=== PATIENT | male | born 1965 | race Caucasian/White ===

== ENCOUNTER 2018-10-24 12:51 | Emergency (ER) | payer BC, MEDICARE ==
[2018-10-24] MEDS ORDERED: Aspirin 81 MG Tab.Chew PO ONE (12:52)
--- NOTE | 2018-10-24 12:55 | EDM.PDOC ---
ED HPI GENERAL MEDICAL PROBLEM - General Chief Complaint: Cardiovascular Problem Stated Complaint: CHEST PAINS Time Seen by Provider: 10/24/18 12:53 Source of Information: Reports: Patient, Old Records History Limitations: Reports: No Limitations - History of Present Illness INITIAL COMMENTS - FREE TEXT/NARRATIVE: 53 yo male here with about 3 hrs of chest pain, 6 out of 10 in severity. No nausea, diaphoresis or SOB. Is a 1 ppd smoker. No personal hx of CAD, but does have a FHx. No diabetes or HTN by hx. Didn't feel well since awakening today. Onset: Today Onset Date: 10/24/18 Onset Time: 10:00 Duration: Hour(s): (3), Constant Location: Reports: Chest Quality: Reports: Pressure Severity: Moderate Improves with: Reports: None Worsens with: Reports: None Context: Reports: Other (See HPI) Associated Symptoms: Reports: Malaise Treatments [employer]: Reports: Other (see below) (none) Chest Pain Score (Numeric/FACES): 6 - Related Data Allergies Allergy/AdvReac Type Severity Reaction Status Date / Time No Known Allergies Allergy Verified 04/02/18 06:00 Home Meds: Home Meds Gabapentin [Neurontin] 2,400 mg PO BEDTIME 06/21/17 [History] Past Medical History Musculoskeletal History: Reports: Back Pain, Chronic, Other (See Below) Other Musculoskeletal History: Lower Back Neurological History: Reports: None - Infectious Disease History Infectious Disease History: Reports: Chicken Pox - Past Surgical History Neurological Surgical History: Reports: Other (See Below) Other Neurological Surgeries/Procedures: neck surgery Musculoskeletal Surgical History: Reports: None Social & Family History - Caffeine Use Caffeine Use: Reports: Coffee ED ROS GENERAL - Review of Systems Review Of Systems: See Below Constitutional: Reports: No Symptoms HEENT: Reports: No Symptoms Respiratory: Reports: No Symptoms Cardiovascular: Reports: Chest Pain Endocrine: Reports: No Symptoms GI/Abdominal: Reports: No Symptoms : Reports: No Symptoms Musculoskeletal: Reports: No Symptoms Skin: Reports: No Symptoms Neurological: Reports: No Symptoms Psychiatric: Reports: No Symptoms ED EXAM, GENERAL - Physical Exam Exam: See Below Exam Limited By: No Limitations General Appearance: Alert, WD/WN, No Apparent Distress Eye Exam: Bilateral Eye: Normal Inspection Ears: Normal External Exam, Normal Canal, Hearing Grossly Normal Ear Exam: Bilateral Ear: Auricle Normal, Canal Normal Nose: Normal Inspection, No Blood Throat/Mouth: Normal Inspection, Normal Lips, Normal Oropharynx, Normal Voice, No Airway Compromise Head: Atraumatic, Normocephalic Neck: Normal Inspection Respiratory/Chest: No Respiratory Distress, Lungs Clear, Normal Breath Sounds, No Accessory Muscle Use, Other (mild anterior chest wall discomfort). No: Chest Non-Tender Cardiovascular: Regular Rate, Rhythm, No Edema GI/Abdominal: Normal Bowel Sounds, Soft, Non-Tender, No Distention Back Exam: Normal Inspection. No: CVA Tenderness (R), CVA Tenderness (L) Extremities: Normal Inspection, Normal Range of Motion, Non-Tender, No Pedal Edema Neurological: Alert, Oriented, CN II-XII Intact, Normal Cognition, No Motor/ Sensory Deficits Psychiatric: Normal Affect, Normal Mood Skin Exam: Warm, Dry, Intact, Normal Color, No Rash EKG INTERPRETATION EKG Date: 10/24/18 Time: 12:45 Rhythm: NSR Rate (Beats/Min): 70 [place]: Normal P-Wave: Present QRS: Normal ST-T: Elevated (anteriorly) QT: Normal Comparison: NA - No Prior EKG Course - Vital Signs Text/Narrative:: EKG FAX'd to [facility] @ [id number], concern re: anterior STEMI vs pericarditis Last Recorded V/S: Last Vital Signs Temp 36.2 C 10/24/18 13:11 Pulse 70 10/24/18 13:11 Resp 12 10/24/18 13:11 BP 122/80 10/24/18 13:11 Pulse Ox 100 10/24/18 13:11 - Orders/Labs/Meds Orders: Active Orders 24 hr Category Date Time Status Cardiac Monitoring [RC] .As Directed Care 10/24/18 12:52 Active EKG Documentation Completion [RC] ASDIRECTED Care 10/24/18 12:52 Active Heparin Sodium/D5W [Heparin 25,000 Units in D5W 500 ML] Med 10/24/18 13:00 Active 25,000 units in 500 ml IV NOW Sodium Chloride 0.9% [Saline Flush] Med 10/24/18 13:00 Active 10 ml FLUSH ASDIRECTED PRN Saline Lock Insert [OM.PC] Routine Oth 10/24/18 13:00 Ordered EKG 12 Lead [EK] Routine Ther 10/24/18 12:52 Ordered Medication Orders Heparin Sodium/Dextrose (Heparin 25,000 Units In D5w 500 Ml) 25,000 units in 500 mls @ 18 mls/hr IV NOW STA Stop: 10/25/18 16:46 Sodium Chloride (Saline Flush) 10 ml FLUSH ASDIRECTED PRN PRN Reason: Keep Vein Open Last Admin: 10/24/18 13:09 Dose: 10 ml Meds: Medications Generic Name Dose Route Start Last Admin Trade Name Freq PRN Reason Stop Dose Admin Heparin Sodium/Dextrose 25,000 units in 500 mls @ 18 mls/hr 10/24/18 13:00 Heparin 25,000 Units In D5w 500 Ml IV 10/25/18 16:46 NOW STA 900 UNITS/HR Sodium Chloride 10 ml 10/24/18 13:00 10/24/18 13:09 Saline Flush FLUSH 10 ml ASDIRECTED PRN Administration Keep Vein Open Discontinued Medications Generic Name Dose Route Start Last Admin Trade Name Freq PRN Reason Stop Dose Admin Aspirin 324 mg 10/24/18 12:52 10/24/18 12:59 Aspirin PO 10/24/18 12:53 324 mg ONETIME ONE Administration Clopidogrel Bisulfate 600 mg 10/24/18 12:59 10/24/18 13:08 Plavix PO 10/24/18 13:00 600 mg ONETIME ONE Administration Heparin Sodium (Porcine) 4,000 units 10/24/18 12:59 10/24/18 13:07 Heparin Sodium IVPUSH 10/24/18 13:00 4,000 units ONETIME ONE Administration Metoprolol Tartrate 25 mg 10/24/18 12:59 10/24/18 13:08 Lopressor PO 10/24/18 13:00 25 mg ONETIME ONE Administration Morphine Sulfate 2 mg 10/24/18 12:59 10/24/18 13:04 Morphine IVPUSH 10/24/18 13:00 2 mg ONETIME ONE Administration Departure - Departure Time of Disposition: 13:25 Disposition: DC/Tfer to Acute Hospital 02 Reason for Transfer *Q: Primary PCI Indicated Condition: Serious Clinical Impression: Acute anterior myocardial infarction Referrals: PCP,None [Primary Care Provider] - Forms: ED Department Discharge - My Orders Last 24 Hours: My Active Orders 10/24/18 12:52 Cardiac Monitoring [RC] .As Directed EKG Documentation Completion [RC] ASDIRECTED EKG 12 Lead [EK] Routine 10/24/18 13:00 Heparin Sodium/D5W [Heparin 25,000 Units in D5W 500 ML] 25,000 units in 500 ml IV NOW Sodium Chloride 0.9% [Saline Flush] 10 ml FLUSH ASDIRECTED PRN Saline Lock Insert [OM.PC] Routine - Assessment/Plan Last 24 Hours: My Active Orders 10/24/18 12:52 Cardiac Monitoring [RC] .As Directed EKG Documentation Completion [RC] ASDIRECTED EKG 12 Lead [EK] Routine 10/24/18 13:00 Heparin Sodium/D5W [Heparin 25,000 Units in D5W 500 ML] 25,000 units in 500 ml IV NOW Sodium Chloride 0.9% [Saline Flush] 10 ml FLUSH ASDIRECTED PRN Saline Lock Insert [OM.PC] Routine
[2018-10-24] MEDS ORDERED: Clopidogrel 75 MG Tab PO ONE (12:59)
[2018-10-24] MEDS ORDERED: Metoprolol Tartrate 25 MG Tab PO ONE (12:59)
[2018-10-24] MEDS ORDERED: Morphine 2 MG/ML Syringe IVPUSH ONE (12:59)
[2018-10-24] MEDS ORDERED: Heparin Sodium 5,000 Units/ML Vial IVPUSH ONE (12:59)
[2018-10-24] MEDS ORDERED: Heparin Sodium/D5W 25,000 UNITS/500 ML BAG IV STA (13:00)
[2018-10-24] MEDS ORDERED: Sodium Chloride 0.9% 10 ML Syringe FLUSH PRN (13:00)
[2018-10-24] MEDS ORDERED: Morphine 4 MG/ML Syringe IVPUSH ONE (13:21)
[2018-10-24] MEDS ORDERED: Morphine 4 MG/ML Syringe ONE (13:23)
[2018-10-24 13:34] VITALS: BP 112/51; PULSE 60
== END 2018-10-24 13:30 ==
LOC: JP.ED 12:51
DX: I21.09 ST elevation (STEMI) myocardial infarction involving other coronary artery of anterior wall (principal); F17.210 Nicotine dependence, cigarettes, uncomplicated
CPT/HCPCS: 36415; 80048; 84484; 85027; 93005; 96374; 96375; 99285; A9270; J1644; J2270; 93010